=== PATIENT | female | born 1960 | race Caucasian/White ===

== ENCOUNTER → 2022-07-18 | Outpatient (CLI) | payer OTHER ==
[2022-07-19 15:08] LABS: HPV 16 Negative (Negative); HPV 18 Negative (Negative); HPV OTHER HR TYPES Positive (Negative)
== END | disposition home or self-care (01) ==
LOC: LAB SHORT 11:16 → LAB 11:16
PROVIDERS: Registered Nurse Community Health
DX: Z12.4 Encounter for screening for malignant neoplasm of cervix (principal)
CPT/HCPCS: 87624; 87625; G0123

== ENCOUNTER 2022-11-23 08:02 | Day surgery (SDC) | payer OTHER ==
[2022-11-30] MEDS ORDERED: DOXY100 (06:38)
== END 2022-11-28 23:38 | disposition home or self-care (01) ==
LOC: MOI US 08:02
DX: D05.11 Intraductal carcinoma in situ of right breast (principal)
CPT/HCPCS: 19285; 77065; A4648

== ENCOUNTER 2023-06-03 10:40 | Day surgery (SDC) | payer OTHER ==
[~2023-06-03] VITALS: Ht 157.5 cm; Wt 52.2 kg
[~2023-06-03 10:40] MED LIST: DOXY100
[2023-06-03] MEDS ORDERED: ANASTROZOLE1 M7 PO (10:53)
[2023-06-03 13:12] VITALS: BP 120/86
== END 2023-06-03 12:48 | disposition home or self-care (01) ==
LOC: ORSCSDS 10:40
PROVIDERS: Internal Medicine Gastroenterology
PROC: 0D758ZZ Dilation of Esophagus, Via Natural or Artificial Opening Endoscopic (ICD-10-PCS; principal; 2023-06-03 12:00)
PROC: 0DBL8ZX Excision of Transverse Colon, Via Natural or Artificial Opening Endoscopic, Diagnostic (ICD-10-PCS; principal; 2023-06-03 12:00)
PROC: 0DBM8ZX Excision of Descending Colon, Via Natural or Artificial Opening Endoscopic, Diagnostic (ICD-10-PCS; principal; 2023-06-03 12:00)
PROC: 0DBK8ZX Excision of Ascending Colon, Via Natural or Artificial Opening Endoscopic, Diagnostic (ICD-10-PCS; principal; 2023-06-03 12:00)
DX: K22.2 Esophageal obstruction (principal); Z86.010 Personal history of colon polyps; D12.2 Benign neoplasm of ascending colon; D12.3 Benign neoplasm of transverse colon; D12.4 Benign neoplasm of descending colon; K57.30 Diverticulosis of large intestine without perforation or abscess without bleeding; E78.5 Hyperlipidemia, unspecified; Z85.3 Personal history of malignant neoplasm of breast; I10 Essential (primary) hypertension; F41.8 Other specified anxiety disorders; Z87.891 Personal history of nicotine dependence; Z79.899 Other long term (current) drug therapy
CPT/HCPCS: 88305; C1726; J2704; J7120

== ENCOUNTER 2023-07-31 09:01 | Day surgery (SDC) | payer OTHER ==
[~2023-07-31] VITALS: Ht 157.5 cm; Wt 54.7 kg
[~2023-07-31 09:01] MED LIST changes: +ANASTROZOLE1 M7 PO
[2023-07-31] MEDS ORDERED: OMEP20ER (09:34)
[2023-07-31] MEDS ORDERED: VITAMIN D310 MC4 (09:35)
[2023-07-31 12:50] VITALS: BP 115/82
== END 2023-07-31 11:11 | disposition home or self-care (01) ==
LOC: ORSCSDS 09:01
PROVIDERS: Specialist
PROC: 0DB58ZX Excision of Esophagus, Via Natural or Artificial Opening Endoscopic, Diagnostic (ICD-10-PCS; principal; 2023-07-31 10:15)
PROC: 0D757ZZ Dilation of Esophagus, Via Natural or Artificial Opening (ICD-10-PCS; principal; 2023-07-31 10:15)
DX: R13.10 Dysphagia, unspecified (principal); K20.90 Esophagitis, unspecified without bleeding; K44.9 Diaphragmatic hernia without obstruction or gangrene; K22.2 Esophageal obstruction; E78.5 Hyperlipidemia, unspecified; I10 Essential (primary) hypertension; Z79.899 Other long term (current) drug therapy
CPT/HCPCS: 88305; 88312; C1726; J2704; J7120

== ENCOUNTER 2023-10-21 09:38 | Day surgery (SDC) | payer OTHER ==
[~2023-10-21] VITALS: Ht 157.5 cm; Wt 56.8 kg
[~2023-10-21 09:38] MED LIST changes: +B-12 COMPL1000 MCG/2 IM; +OMEP20ER; +VITAMIN D310 MC4; +Vibramycin100 MG PO
[2023-10-21] MEDS ORDERED: OMEP20ER (10:00)
[2023-10-21 11:10] VITALS: BP 136/90
--- NOTE | 2023-10-21 11:12 | NUR ---
10/21/23 1112 Ene Almendarez IV CATHETER DC'D/ WNL
== END 2023-10-21 11:12 | disposition home or self-care (01) ==
LOC: ORSCSDS 09:38
PROVIDERS: Specialist
PROC: 0D758ZZ Dilation of Esophagus, Via Natural or Artificial Opening Endoscopic (ICD-10-PCS; principal; 2023-10-21 11:00)
DX: R13.10 Dysphagia, unspecified (principal); K44.9 Diaphragmatic hernia without obstruction or gangrene; K22.2 Esophageal obstruction; F41.9 Anxiety disorder, unspecified; E78.5 Hyperlipidemia, unspecified; I10 Essential (primary) hypertension; Z79.899 Other long term (current) drug therapy; Z87.891 Personal history of nicotine dependence
CPT/HCPCS: C1726; J2704; J7120

== ENCOUNTER → 2024-04-24 | Outpatient (CLI) | payer OTHER ==
[2024-04-24 12:16] LABS: CHOL/HDL RATIO 2.6; Cholesterol 233 mg/dL (50-200); HDL Cholesterol 90 mg/dL (>39); LDL/HDL RATIO 1.4; Low Density Lipoprotein Chol 122 mg/dL (0-110); Triglycerides 104 mg/dL (30-160); Very Low Density Lipoprot Chol 20 mg/dL (6-32)
== END | disposition home or self-care (01) ==
LOC: LAB SHORT 10:47 → LAB 10:47
PROVIDERS: Family Medicine
DX: Z51.81 Encounter for therapeutic drug level monitoring (principal); Z79.899 Other long term (current) drug therapy
CPT/HCPCS: 80061; 82306; 84443

== ENCOUNTER → 2024-10-29 | Outpatient (CLI) | payer OTHER ==
[2024-11-01 13:00] LABS: HSV 1 SUBTYPE BY PCR Not Detected; HSV 2 SUBTYPE BY PCR Detected; HSV SUBTYPE SOURCE Not Provided
== END ==
LOC: LAB SHORT 14:21 → LAB 14:21
PROVIDERS: Registered Nurse Community Health
DX: N89.8 Other specified noninflammatory disorders of vagina (principal)
CPT/HCPCS: 87529

== ENCOUNTER → 2025-05-19 | Outpatient (CLI) | payer OTHER ==
[2025-05-19 20:08] LABS: Alanine Aminotransfer (ALT/SGP 25 U/L (12-78); Albumin, Blood 3.1 g/dL (3.4-5.0); Albumin/Globulin Ratio 0.6 (0.8-1.8); Anion Gap 11 mmol/L (3-11); Aspartate Aminotrans (AST/SGOT 81 U/L (12-37); Bilirubin, Total 1.4 mg/dL (0.1-1.0); Blood Urea Nitrogen 5 mg/dL (8-24); CHOL/HDL RATIO 4.7; CO2, Blood 24 mmol/L (21-32); Calcium, Blood 8.3 mg/dL (8.5-10.1); Chloride, Blood 99 mmol/L (98-108); Cholesterol 159 mg/dL (50-200); Creatinine, Blood 0.59 mg/dL (0.40-1.00); Globulin, Blood 5.1 g/dL (2.2-4.0); Glucose, Blood 130 mg/dL (70-99); HDL Cholesterol 34 mg/dL (>39); LDL/HDL RATIO 3.2; Low Density Lipoprotein Chol 108 mg/dL (0-110); Potassium, Blood 4.0 mmol/L (3.5-5.5); Sodium, Blood 130 mmol/L (136-145); Thyroid Stimulating Hormone 3.300 uIU/mL (0.360-4.800); Total Protein, Blood 8.2 g/dL (6.4-8.2); Triglycerides 86 mg/dL (30-160); Very Low Density Lipoprot Chol 17 mg/dL (6-32)
== END ==
LOC: LAB 17:11 → LAB SHORT 17:11
PROVIDERS: Family Medicine
DX: Z51.81 Encounter for therapeutic drug level monitoring (principal); Z79.899 Other long term (current) drug therapy
CPT/HCPCS: 80053; 80061; 84443

== ENCOUNTER → 2025-09-17 | Outpatient (CLI) | payer OTHER ==
[2025-09-17 21:25] LABS: Campylobacter Sp Not Detected (NOT DETECT); E. Coli O157 Not Detected (NOT DETECT); Enteroaggregative E. coli-EAEC Not Detected (NOT DETECT); Enteropathogenic E. coli-EPEC Not Detected (NOT DETECT); Enterotoxigenic E. coli-ETEC Not Detected (NOT DETECT); Salmonella Sp Not Detected (NOT DETECT); Shiga Toxin-prod E. coli-STEC Not Detected (NOT DETECT); Shigella/Enteroin E. coli-EIEC Not Detected (NOT DETECT); Vibrio Sp Not Detected (NOT DETECT)
== END ==
LOC: LAB SHORT 16:28 → LAB 16:28
PROVIDERS: Family Medicine
DX: R10.9 Unspecified abdominal pain (principal)
CPT/HCPCS: 87507